=== PATIENT | female | born 1960 | race Caucasian/White ===

== ENCOUNTER → 2017-11-14 | Day surgery (SDC) | payer BC ==
[~2017-11-14] MED LIST: Propofol 10 mg/ml Inj (20 ML) ONE
[2017-11-14 07:35] VITALS: BMI 30.4
--- NOTE | 2017-11-14 09:01 | CP.SDSHP ---
Same Day Surgery H & P - History Proposed Procedure: EGD/colonoscopy Pre-Op Diagnosis: abdominal pain, screening - Previous Medical/Surgical History Comments: depression - Allergies Allergies: Allergies No Known Allergies Allergy (Unverified 01/18/13 20:23) nka - Physical Exam General Appearance: NAD Vital Signs: Vital Signs 11/14/17 07:43 Temperature 96.8 F L Pulse Rate 69 Respiratory 16 Rate Blood Pressure 132/85 O2 Sat by Pulse 98 Oximetry Mental Status: Alert & Oriented x3 Neuro: WNL Heart: WNL Lungs: WNL GI: WNL - {Optional Preform as Required} Abdomen: WNL - Impression Pt. Evaluated Today:Candidate for Anesthesia & Procedure: Yes - Date & Time Date: 11/14/17 Time: 09:01 Short Stay Discharge - Short Stay Discharge Admitting Diagnosis/Reason for Visit: ABDOMINAL PAIN, SCREENING Disposition: HOME/ ROUTINE
[2017-11-14 11:26] VITALS: TEMP 97
[2017-11-14 11:39] VITALS: BP 128/76; PULSE 75; RESP 20; O2SAT 100
== END | disposition home or self-care (01) ==
LOC: C.ENDO 07:10
PROVIDERS: ATTEND Internal Medicine Gastroenterology
DX: D12.0 Benign neoplasm of cecum (principal); D12.2 Benign neoplasm of ascending colon; D12.5 Benign neoplasm of sigmoid colon; K25.9 Gastric ulcer, unspecified as acute or chronic, without hemorrhage or perforation; K29.70 Gastritis, unspecified, without bleeding; K29.80 Duodenitis without bleeding; K64.8 Other hemorrhoids
CPT/HCPCS: 43239; 45385; 88305; 88312; 88313; 88342; J2001; J2704